=== PATIENT | female | born 1980 | race African-American/Black ===

== ENCOUNTER 2016-05-15 08:49 | Emergency (ER) | payer OTHER ==
[~2016-05-15] VITALS: Ht 167.6 cm; Wt 52.2 kg
[~2016-05-15 08:49] MED LIST: BACTRIM DS TAB1 EACH PO; COLACE 100 MG100 MG PO; FLONASE 0.05%50 MCG NASAL; IBUPROFEN 600600 M1 PO; IRON325 PO; LANOLIN56 GM; NOHOMEMEDICATIONS; OXYCODONE-APAP1 EAC4 PO; PRENATAL COMPL1 EACH PO; SENOKOT-S1 TA1 PO; VENTOLIN HFA 1818 GM INH
[2016-05-15 09:18] LABS: URINE BILIRUBIN NEGATIVE (Negative); URINE BLOOD NEGATIVE (Negative); URINE COLOR YELLOW; URINE GLUCOSE-RANDOM* NEGATIVE (Negative); URINE KETONES 3+ (Negative); URINE NITRITE NEGATIVE (Negative); URINE PROTEIN (DIPSTICK) 1+ (Negative); URINE SPECIFIC GRAVITY >= 1.030 (1.003-1.035)
[2016-05-15 09:29] LABS: CASTS None Seen /LPF (None Seen); SQUAMOUS >10 Many /LPF (0-3)
[2016-05-15 09:30] LABS: BACTERIA 1-9 Few /HPF (None Seen); CRYSTALS None Seen /LPF (None Seen); URINE RBC None Seen /HPF (0-2); URINE WBC 0-5 Rare /HPF (0-5)
[2016-05-15 11:01] LABS: POC CREATININE 0.6 mg/dL (0.6-1.3); POC HEMOGLOBIN 12.6 gm/dL (12.0-15.0)
[2016-05-15 12:22] LABS: CALCIUM 8.3 mg/dL (8.5-10.1); CREATININE 0.7 mg/dL (0.6-1.3); POTASSIUM 4.1 mmol/L (3.5-5.1)
[2016-05-15] MEDS ORDERED: PHENERGAN 25 MG25 M1 PO (12:36)
[2016-05-15 12:59] VITALS: BP 128/89
== END 2016-05-15 13:00 | disposition home or self-care (01) ==
LOC: ER 08:49
PROVIDERS: Physician Assistant
DX: O21.0 Mild hyperemesis gravidarum (principal); Z3A.01 Less than 8 weeks gestation of pregnancy

== ENCOUNTER 2017-01-03 11:53 | Emergency (ER) | payer OTHER ==
[~2017-01-03] VITALS: Ht 167.6 cm; Wt 52.2 kg
[~2017-01-03 11:53] MED LIST changes: +PHENERGAN 25 MG25 M1 PO
[2017-01-03 12:50] LABS: URINE BILIRUBIN NEGATIVE (Negative); URINE BLOOD TRACE (Negative); URINE COLOR YELLOW; URINE GLUCOSE-RANDOM* NEGATIVE (Negative); URINE KETONES 3+ (Negative); URINE NITRITE NEGATIVE (Negative); URINE PROTEIN (DIPSTICK) TRACE (Negative); URINE SPECIFIC GRAVITY >= 1.030 (1.003-1.035); URINE UROBILINOGEN 0.2 E.U./dl (0.2-1.0)
[2017-01-03 13:45] LABS: BASOPHILS 0.4 % (0.0-2.0); EOSINOPHILS 0.4 % (0.0-3.0); HEMATOCRIT 42.9 % (37.0-47.0); HEMOGLOBIN 14.2 gm/dL (12.0-15.0); MCH 29.2 pg (26.0-34.0); MCHC 33.1 g/dL (28.0-37.0); MCV 88.2 fL (80.0-100.0); MONOCYTES 6.6 % (1.0-8.0); PLATELET COUNT 166 thou/uL (150-400); POLYS 75.6 % (36.0-66.0); RBC 4.87 mil/uL (4.20-5.00); RDW 14.1 % (10.5-14.5); WBC 6.7 thou/uL (4.0-11.0)
[2017-01-03 13:46] LABS: MANUAL DIFF NO
[2017-01-03 13:52] LABS: CALCIUM 9.1 mg/dL (8.5-10.1); CREATININE 0.7 mg/dL (0.6-1.0); POTASSIUM 4.4 mmol/L (3.5-5.1)
[2017-01-03] MEDS ORDERED: PHENERGAN 25 MG25 M1 PO (14:25)
[2017-01-03] MEDS ORDERED: PRENATAL COMPL1 EACH PO (14:25)
[2017-01-03] MEDS ORDERED: PROMS25 WY RECTAL (14:47)
[2017-01-03 16:02] VITALS: BP 116/72
== END 2017-01-03 16:03 | disposition home or self-care (01) ==
LOC: ER 11:53
PROVIDERS: Emergency Medicine
DX: O21.0 Mild hyperemesis gravidarum (principal); N83.201 Unspecified ovarian cyst, right side; Z3A.08 8 weeks gestation of pregnancy

== ENCOUNTER 2020-04-15 19:50 | Emergency (ER) | payer OTHER ==
[~2020-04-15] VITALS: Ht 167.6 cm; Wt 52.2 kg
[~2020-04-15 19:50] MED LIST changes: +PROMS25 WY RECTAL
[2020-04-15 19:54] VITALS: BP 123/75
[2020-04-15] MEDS ORDERED: NORCO 5-325 TA1 EAC2 PO (21:09)
== END 2020-04-15 21:27 | disposition home or self-care (01) ==
LOC: ER 19:50
DX: M25.561 Pain in right knee (principal); Z79.899 Other long term (current) drug therapy